=== PATIENT | female | born 1950 | race Caucasian/White ===

== ENCOUNTER 2022-07-30 14:24 | Inpatient (IN) | payer MEDICARE, OTHER ==
[~2022-07-30] VITALS: Ht 162.6 cm; Wt 97.3 kg
--- NOTE | 2022-07-30 19:30 | NUR ---
DIRECT ADMIT NOTES PT ARRIVED @ 1905 ACCOMPANIED BY 2 reporting coordinator ON [facility]. AOx4, YAKUT SPEAKING. TRANSLATED FOR PATIENT. ON RA AND TOLERATING WELL. NO SOB NOTED. NO S/SX OF RESPIRATORY DISTRESS NOTED. MEJIA CATHETER IN PLACE: DRAINING CLEAR, YELLOW URINE. SAFETY PRECAUTIONS IN PLACE: BED IN LOWEST, LOCKED POSITION, SIDERAILS UPx2, AND BRAKES ON. TABLE AND CALL LIGHT WITHIN REACH. NO ORDERS AT THIS TIME. MD CONTACTED FOR ADMITTING ORDERS. ALL NEEDS MET AT THIS TIME.
[2022-07-31] MEDS ORDERED: ONDANSETRON HCL/PF 4 MG/2 ML VIAL IVP PRN
[2022-07-31] MEDS ORDERED: ACETAMINOPHEN 325 MG TABLET PO PRN
[2022-07-31] MEDS ORDERED: ALPRAZOLAM 0.5 MG TABLET PO PRN (00:30)
[2022-07-31] MEDS: IV NS 0.9% 1,000 ML IV PRN (00:37)
[2022-07-31] MEDS: GABAPENTIN 100 MG CAPSULE PO SCH ×3 (00:37→21:36)
[2022-07-31] MEDS ORDERED: CEFTRIAXONE 1 G in IV D5W 50 ML IV SCH (01:00)
[2022-07-31] MEDS: METOPROLOL TARTRATE 50 MG TABLET PO SCH ×3 (01:08→21:35)
[2022-07-31] MEDS ORDERED: ACYCLOVIR IV 500 MG VIAL IV ONE (01:24)
--- NOTE | 2022-07-31 01:30 | NUR ---
RN NOTES CHARGE NURSE MADE AWARE OF IV IN LAC #20 AND SAID IV IN THAT SPOT IS OK.
--- NOTE | 2022-07-31 01:52 | NUR ---
RN NOTES ADMINISTERED XANAX PER MD ORDER.
[2022-07-31] MEDS: ACYCLOVIR IV 1 GM in IV D5W 250 ML IV SCH ×6 (02:17→23:06)
--- NOTE | 2022-07-31 06:48 | NUR ---
RN CLOSING NOTES PT IN BED, ASLEEP, AWAKENS TO VERBAL STIMULI. AOx4, [place] ISLANDER AND [place]ER SPEAKING. ON RA AND TOLERATING WELL. NO SOB NOTED. NO S/SX OF RESPIRATORY DISTRESS NOTED. IV ACCESS IN LAC #20G RUNNING NS @ 75 ML/HR. MEJIA CATHETER IN PLACE: DRAINING CLEAR, YELLOW URINE. ALL ORDERS CARRIED OUT. ALL NEEDS MET. PT KEPT CLEAN AND DRY. SAFETY PRECAUTIONS IN PLACE: BED IN LOWEST, LOCKED POSITION, SIDERAILS UPx2, AND BRAKES ON. TABLE AND CALL LIGHT WITHIN REACH. WILL ENDORSE TO ONCOMING SHIFT FOR RONALDO.
--- NOTE | 2022-07-31 07:30 | NUR ---
RN OPENING NOTES RECEIVED PATIENT AWAKE IN BED. PATIENT IS AOx4, SINHALA AND LITHUANIAN SPEAKING. ON RA AND TOLERATING WELL. NO SOB NOTED. NO S/SX OF RESPIRATORY DISTRESS NOTED. IV ACCESS IN LAC #20G RUNNING NS @ 75 ML/HR. MEJIA CATHETER IN PLACE: DRAINING CLEAR, YELLOW URINE. ON ISOLATION FOR SHINGLES. ALL SAFETY PRECAUTIONS IN PLACE: BED IN LOWEST, LOCKED POSITION, SIDERAILS UPx2, AND BRAKES ON. TABLE AND CALL LIGHT WITHIN REACH. WILL CONTINUE TO MONITOR.
[2022-07-31 08:00] VITALS: BP 137/75
--- NOTE | 2022-07-31 08:11 | NUR ---
WOUND CARE CONSULT: PT EATING AT THIS TIME. PT HAS REDNESS TO LEFT BREAST, LESIONS TO FACE, CHEST/ABDOMEN, GLUTEAL CREASE, AND SEVERE LESIONS TO LEFT BUTTOCK AND THIGH, ALL PRESENT ON ADMISSION. DR FAY TAVAREZ CALLED FOR SURGICAL CONSULT. DISCUSSED SKIN PROTECTION WITH NURSING STAFF BUT DEFER ANY POSSIBLE TOPICAL TREATMENT TO IJune JACQUES AND SURGICAL TEAM. MD IN AGREEMENT WITH PLAN OF CARE. Addendum: 07/31/22 at 0818 by YENI ARREDONDO WNDNU [facility].
[2022-07-31] MEDS ORDERED: Z GUARD REMEDY 4 OZ OINT TP PRN (08:30)
[2022-07-31] MEDS ORDERED: ATEN50TA PO (08:55)
[2022-07-31] MEDS ORDERED: AMLO-212 PO (08:55)
[2022-07-31] MEDS ORDERED: ALBU18HF2 INH (08:55)
[2022-07-31] MEDS ORDERED: IBUP-1955 PO (08:55)
[2022-07-31] MEDS ORDERED: ZOLP5TAB8 PO (08:55)
[2022-07-31] MEDS ORDERED: ASPI-1169 PO (08:55)
[2022-07-31] MEDS ORDERED: ICOS1CAP PO (08:55)
[2022-07-31] MEDS ORDERED: ROSU40TA23 PO (08:55)
[2022-07-31] MEDS ORDERED: ALPR0.5T8 PO (08:55)
[2022-07-31] MEDS ORDERED: GABA300C PO (08:55)
[2022-07-31] MEDS ORDERED: LISI20TA30 PO (08:55)
[2022-07-31] MEDS ORDERED: ANAS1TAB50 PO (08:55)
[2022-07-31] MEDS ORDERED: MECL-159 PO (08:55)
[2022-07-31] MEDS ORDERED: CLOT15CR5 TP (08:55)
[2022-07-31] MEDS ORDERED: MAGN400T26 PO (08:55)
[2022-07-31] MEDS: ANCEF 1 GM/50 ML D5W IV SCH ×4 (08:58→14:01)
[2022-07-31] MEDS: AMLODIPINE BESYLATE 5 MG TABLET PO SCH (09:03)
[2022-07-31] MEDS: ASPIRIN 81 MG TAB.CHEW PO SCH (09:04)
[2022-07-31] MEDS: ANASTROZOLE 1 MG TABLET PO SCH (09:04)
[2022-07-31] MEDS: ENOXAPARIN SODIUM 40 MG/0.4 ML DISP.SYRIN SQ SCH (09:06)
[2022-07-31 09:44] LABS: BASOPHILS # (AUTO) 0.1 K/uL (0.0-0.2); BASOPHILS % (AUTO) 1.1 % (0.0-2.0); EOSINOPHILS % (AUTO) 0.2 % (0.0-6.0); HEMATOCRIT 29 % (33-45); HEMOGLOBIN 9.8 g/dL (11.5-14.8); LYMPHOCYTES # (AUTO) 9.5 K/uL (0.8-4.8); LYMPHOCYTES % (AUTO) 77.2 % (20.0-44.0); MEAN CORPUSCULAR HGB CONC 34 g/dl (31.0-36.0); MEAN CORPUSCULAR VOLUME 87 fL (82-100); MONOCYTES # (AUTO) 0.3 K/uL (0.1-1.30); MONOCYTES % (AUTO) 2.7 % (2.0-12.0); NEUTROPHILS # (AUTO) 2.3 K/uL (1.8-8.9); NEUTROPHILS % (AUTO) 18.8 % (43.0-81.0); PLATELET COUNT (AUTO) 120 K/uL (150-450); RED BLOOD CELL COUNT(AUTO) 3.36 MIL/uL (4.0-5.2); WHITE BLOOD COUNT (AUTO) 12.4 K/uL (4.3-11.0)
[2022-07-31 09:46] LABS: CALCIUM, SERUM 8.3 mg/dL (8.5-10.1); CREATININE 0.7 mg/dL (0.6-1.3); MAGNESIUM 2.3 mg/dL (1.8-2.4); PHOSPHORUS 3.3 mg/dL (2.5-4.9)
[2022-07-31 12:10] LABS: LYMPHOCYTES % (MANUAL) 60 % (16-48); MONOCYTES % (MANUAL) 1 % (0-11.0); NEUTROPHILS % (MANUAL) 39 (42-76)
[2022-07-31] MEDS ORDERED: HYDROCODONE/APAP 5/325MG TABLET PO PRN (15:00)
[2022-07-31 16:00] VITALS: BP 129/52
--- NOTE | 2022-07-31 19:30 | NUR ---
RN CLOSING NOTES PATIENT AWAKE IN BED. PATIENT IS AOx4, KOSOVAN SPEAKING. ON RA AND TOLERATING WELL. NO SOB NOTED. NO S/SX OF RESPIRATORY DISTRESS NOTED. IV ACCESS IN LAC #20G RUNNING NS @ 75 ML/HR. MEJIA CATHETER IN PLACE:OUT PUT OF 2000 ML NOTED AND DRAINING CLEAR, YELLOW URINE. ON AIRBORNE ISOLATION FOR SHINGLES. ALL DUE MEDS GIVEN ORDERED. FAMILY VISITED THE PATIENT. ALL SAFETY PRECAUTIONS IN PLACE: BED IN LOWEST, LOCKED POSITION, SIDERAILS UPx2, AND BRAKES ON. TABLE AND CALL LIGHT WITHIN REACH. WILL ENDORSE FOR RONALDO..
--- NOTE | 2022-07-31 19:45 | NUR ---
MS RN OPENING NOTES RECEIVED PATIENT IN BED: AWAKE, ALERT AND ORIENTED X 4. SURINAMESE SPEAKING, SPEAK SIMPLE HUNGARIAN. BREATHING EVEN AND NONLABORED. ON ROOM AIR; WELL TOLERATING. NOT IN ANY FORM OF RESPIRATORY DISTRESS. WITH IV ACCESS ON LEFT ANTECUBITAL 20g: PATENT AND INTACT INFUSING WITH NS REGULATED @ 75 ML/HR; FLUSHES WELL. ABLE TO MAKE NEEDS KNOWN. FALL AND SAFETY MEASURES IMPLEMENTED: CALL LIGHT AND TABLE WITHIN REACH, SIDE RAILS UP X 2, BED IN LOWEST LOCKED POSITION. WILL CONTINUE PLAN OF CARE.
[2022-07-31 20:00] VITALS: BP 122/79
[2022-07-31] MEDS: CEFAZOLIN 2 GM in IV D5W 50 ML IV SCH (20:12)
[2022-08-01] MEDS: CEFAZOLIN 2 GM in IV D5W 50 ML IV SCH ×3 (05:20→20:43)
--- NOTE | 2022-08-01 07:00 | NUR ---
MS RN CLOSING NOTES PATIENT IN BED: AWAKE, A/O X 4. HUNGARIAN SPEAKING, SPEAK SIMPLE LITHUANIAN. BREATHING EVEN AND NONLABORED. STABLE ON ROOM AIR. IN NO APPARENT DISTRESS. WITH IV ACCESS ON LEFT ANTECUBITAL 20g: PATENT AND INTACT INFUSING WITH NS REGULATED @ 75 ML/HR; INFUSING WELL. ALL NEEDS MET. FALL AND SAFETY MEASURES MAINTAINED: CALL LIGHT AND TABLE WITHIN REACH, SIDE RAILS UP X 2, BED IN LOWEST LOCKED POSITION. ENDORSED TO STANISLAV CAMPOS FOR RONALDO.
--- NOTE | 2022-08-01 07:30 | NUR ---
MS RN OPENING NOTES: RECEIVED PATIENT IN BED, AWAKE. ALERT AND ORIENTED X 4 ARABIC SPEAKING, ABLE TO COMMUNICATE WITH SIMPLE CITIZEN OF [place]. NO SOB OR CARDIAC DISTRESS NOTED. AFEBRILE DENIES PAIN AT THIS TIME. IV ACCESS ON LAC G#20 PATENT AND INTACT AND INFUSING NS 1L @75ML/HR INFUSING WELL. MEJIA CATHETER INTACT DRAINING CLEAR YELLOW COLORED URINE BY GRAVITY. NOTED WITH MULTIPLE SCATTERED RASHES/BLISTERS ON FACE AND ANTERIOR CHEST, BACK, INNER THIGHS AND BUTTOCKS. SAFETY PRECAUTIONS MAINTAINED: BED IN LOWEST AND LOCKED POSITION. SIDE RAILS UP X 2. CALL LIGHT IN EASY REACH FOR HELP. WILL MONITOR FOR ANY SIGNIFICANT CHANGES.
[2022-08-01 08:00] VITALS: BP 133/73
--- NOTE | 2022-08-01 08:10 | NUR ---
RN NOTES: PATIENT SEEN, BED BATH GIVEN, CHANGES CLOTHES AND BEDDINGS AND BLANKET. REINSERTED G #22 IV ACCESS ON RIGHT HAND PATENT AND INTACT. LAC ACCESS KEPT FLEXING AND MOVING. PATIENT TOLERATED WELL.
[2022-08-01] MEDS: ACYCLOVIR IV 1 GM in IV D5W 250 ML IV SCH ×2 (08:31→16:01)
[2022-08-01] MEDS: GABAPENTIN 100 MG CAPSULE PO SCH ×2 (08:37→20:43)
[2022-08-01] MEDS: ANASTROZOLE 1 MG TABLET PO SCH (08:37)
[2022-08-01] MEDS: ASPIRIN 81 MG TAB.CHEW PO SCH (08:37)
[2022-08-01] MEDS: AMLODIPINE BESYLATE 5 MG TABLET PO SCH (08:38)
[2022-08-01] MEDS: METOPROLOL TARTRATE 50 MG TABLET PO SCH ×2 (08:38→20:43)
[2022-08-01] MEDS: ENOXAPARIN SODIUM 40 MG/0.4 ML DISP.SYRIN SQ SCH (09:40)
--- NOTE | 2022-08-01 14:44 | NUR ---
RN NOTES: PATIENT WAS PICKED UP BY OR NURSE PATEL FOR WOUND DEBRIDEMENT. PATIENT STABLE AND IV ANTIBIOTIC VANCO RUNNING WELL. PATIENT STABLE AT THIS TIME. MAINTAINED NPO.
[2022-08-01 16:00] VITALS: BP_SYST 130; BP_SYST 131; BP_DIAS 79
[2022-08-01] MEDS: IV NS 0.9% 1,000 ML IV PRN (16:10)
--- NOTE | 2022-08-01 17:40 | NUR ---
RN NOTES: PATIENT IS HAVING CONSTIPATION FOR 5 DAYS, RN ASSISTED PT GOING TO BATHROOM AND HAVING HARD TIME TO HAVE BM. INFORMED DR HAZEL, PER MD ORDERED MIRALAX 1 PACKET PRN DAILY. ORDERS NOTED AND CARRIED OUT. PATIENT HAD BM AFTER I MESSAGED .
[2022-08-01] MEDS ORDERED: POLYETHYLENE GLYCOL 3350 17 GM POWD.PACK PO PRN (18:30)
--- NOTE | 2022-08-01 18:56 | NUR ---
MS RN CLOSING NOTES: PATIENT IN BED, AWAKE. ALERT AND ORIENTED X 4 ALBANIAN SPEAKING, ABLE TO COMMUNICATE WITH SIMPLE LITHUANIAN. FAMILY AT BED SIDE. NO SOB OR CARDIAC DISTRESS NOTED. AFEBRILE DENIES PAIN AT THIS TIME. IV ACCESS ON LAC G#20, R HAND G#22 PATENT AND INTACT AND INFUSING NS 1L @75ML/HR INFUSING WELL. MEJIA CATHETER INTACT DRAINING CLEAR YELLOW COLORED URINE BY GRAVITY. NOTED WITH MULTIPLE SCATTERED RASHES/BLISTERS ON FACE AND ANTERIOR CHEST, BACK, INNER THIGHS AND BUTTOCKS. SAFETY PRECAUTIONS MAINTAINED: BED IN LOWEST AND LOCKED POSITION. SIDE RAILS UP X 2. CALL LIGHT IN EASY REACH FOR HELP. WILL MONITOR FOR ANY SIGNIFICANT CHANGES. ENDORSED TO NOC SHIFT FOR CONTINUITY OF CARE.
--- NOTE | 2022-08-01 19:30 | NUR ---
RN OPENING NOTE PATIENT IN BED, ABLE TO MAKE NEEDS KNOWN. AMBULATED TO BATHROOM WITH ASSIST. PATIENT ON RA, TOLERATING WELL, NO SOB NOTED, BREATHING EVEN AND UNLABORED. PATIENT NO PAIN AT THIS TIME. R HAND IV ACCESS PATENT AND INTACT INFUSING IV FLUIDS. PATIENT IN ISOLATION RM FOR SHINGLES, ISOLATION PRECAUTION IN PLACE. SAFETY MEASURES IN PLACE: BED LOCKED AND IN LOWEST POSITION, CALL LIGHT WITHIN REACH, SIDE RAILS UP. WILL MONITOR PATIENT CLOSELY.
[2022-08-01 20:00] VITALS: BP 145/57
[2022-08-02] MEDS: ACYCLOVIR IV 1 GM in IV D5W 250 ML IV SCH ×3 (00:46→16:16)
[2022-08-02] MEDS: CEFAZOLIN 2 GM in IV D5W 50 ML IV SCH ×3 (04:43→21:42)
--- NOTE | 2022-08-02 07:07 | NUR ---
RN CLOSING NOTE PATIENT IN BED, EYES CLOSED, EASILY AWAKENED. ABLE TO MAKE NEEDS KNOWN. PATIENT ON RA, TOLERATING WELL, NO SOB NOTED, BREATHING EVEN AND UNLABORED. PATIENT NO PAIN AT THIS TIME. R HAND 22G PATENT AND INTACT INFUSING NS AT 75 ML/HR. PATIENT IN ISOLATION RM FOR SHINGLES, ISOLATION PRECAUTIONS IN PLACE. PATIENT NOT IN ANY APPARENT DISTRESS. SAFETY MEASURES IN PLACE: BED LOCKED AND IN LOWEST POSITION, CALL LIGHT WITHIN REACH, SIDE RAILS UP. ALL NEEDS MET AND ATTENDED. ALL ORDERS CARRIED OUT. WILL ENDORSE TO DAY SHIFT NURSE FOR RONALDO.
--- NOTE | 2022-08-02 08:07 | NUR ---
RN OPENING NOTE PATIENT RECEIVED IN BED, AO X 4, SINHALA SPEAKING, ABLE TO RESPONDS ALL STIMULI. IN NO ACUTE DISTRESS NOTED. RESPIRATORY EVEN AND UNLABORED ON ROOM AIR. SKIN IS WARM TO TOUCH, KEEP CLEAN/DRY. KEPT ELEVATED HOB FOR ENSURE AIRWAY AND ASPIRATION PRECAUTION, ALSO LOWEST POSITION OF THE BED, S/R UP X 2, BED ALARM IS ON AT ALL THE TIMES. ALL SAFETY PRECAUTION APPLIED. CALL LIGHT WITHIN REACH, WILL CONTINUE TO MONITOR.
[2022-08-02 08:42] VITALS: BP 137/59
[2022-08-02] MEDS: GABAPENTIN 100 MG CAPSULE PO SCH ×2 (09:25→21:41)
[2022-08-02] MEDS: ENOXAPARIN SODIUM 40 MG/0.4 ML DISP.SYRIN SQ SCH (09:25)
[2022-08-02] MEDS: ASPIRIN 81 MG TAB.CHEW PO SCH (09:25)
[2022-08-02] MEDS: ANASTROZOLE 1 MG TABLET PO SCH (09:26)
[2022-08-02] MEDS: METOPROLOL TARTRATE 50 MG TABLET PO SCH ×2 (09:26→21:42)
[2022-08-02] MEDS: AMLODIPINE BESYLATE 5 MG TABLET PO SCH (09:28)
[2022-08-02] MEDS: IV NS 0.9% 1,000 ML IV PRN (13:25)
[2022-08-02 16:12] VITALS: BP 153/69
--- NOTE | 2022-08-02 18:52 | NUR ---
RN CLOSING NOTE PATIENT IN BED RESTING. IN NO ACUTE DISTRESS NOTED. RESPIRATORY EVEN AND UNLABORED ON ROOM AIR. SKIN IS WARM TO TOUCH, KEEP CLEAN/DRY, INTACT IV LINE. PROVIDED WOUND CARE ON AFFECTED SITE DUE TO SHINGLES. KEPT ELEVATED HOB FOR ENSURE AIRWAY AND ASPIRATION PRECAUTION. BED IN LOWEST POSITION AND LOCKED. BED ALARM IS ON AT ALL THE TIMES. ALL SAFETY MEASURED IN PLACED. CALL LIGHT WITHIN REACH, WILL ENDORSED TO NEXT SHIFT.
--- NOTE | 2022-08-02 19:40 | NUR ---
MS RN OPENING NOTES RECEIVED PATIENT IN BED; AWAKE, ALERT AND ORIENTED X 4. IRANIAN SPEAKING, SPEAKS AND UNDERSTAND SIMPLE NEPALI. BREATHING EVEN AND NONLABORED. ON ROOM AIR; TOLERATING WELL. NOT IN ANY FORM OF RESPIRATORY DISTRESS. DENIES ANY PAIN OR DISCOMFORT AT THIS TIME. WITH IV ACCESS ON LEFT ANTECUBITAL 20g; PATENT, INTACT AND SL. RIGHT HAND 22g; PATENT AND INTACT INFUSING WITH NS 1L REGULATED @ 75 ML/HR; FLUSHES WELL. NO INFILTRATION NOTED. ABLE TO MAKE NEEDS KNOWN. SAFETY PRECAUTIONS IMPLEMENTED: CALL LIGHT AND TABLE WITHIN EASY REACH, SIDE RAILS UP X 2, BED IN LOWEST LOCKED POSITION. WILL CONTINUE PLAN OF CARE.
[2022-08-02 20:00] VITALS: BP 146/69
[2022-08-02 20:28] VITALS: BP 146/69
[2022-08-03] MEDS: ACYCLOVIR IV 1 GM in IV D5W 250 ML IV SCH ×3 (00:47→16:12)
[2022-08-03] MEDS: CEFAZOLIN 2 GM in IV D5W 50 ML IV SCH ×3 (04:10→21:34)
[2022-08-03] MEDS: IV NS 0.9% 1,000 ML IV PRN ×2 (05:26→18:07)
--- NOTE | 2022-08-03 06:55 | NUR ---
MS RN CLOSING NOTES PATIENT IN BED; AWAKE, A/O X 4. KYRGYZ SPEAKING, SPEAKS AND UNDERSTAND SIMPLE MICRONESIAN. RESPIRATION EVEN AND UNLABORED. STABLE ON ROOM AIR. IN NO APPARENT DISTRESS. NO C/O PAIN OR DISCOMFORT AT THIS TIME. WITH IV ACCESS ON LAC 20g; PATENT, INTACT AND SL. RIGHT HAND 22g; PATENT AND INTACT INFUSING WITH NS 1L REGULATED @ 75 ML/HR; FLUSHES WELL. ALL NEEDS MET. SAFETY PRECAUTIONS MAINTAINED: CALL LIGHT AND TABLE WITHIN EASY REACH, SIDE RAILS UP X 2, BED IN LOWEST LOCKED POSITION. ENDORSED TO ARACELI CAMPOS FOR RONALDO.
[2022-08-03 07:25] LABS: BASOPHILS % (AUTO) 0.4 % (0.0-2.0); EOSINOPHILS % (AUTO) 1.2 % (0.0-6.0); HEMATOCRIT 28 % (33-45); HEMOGLOBIN 9.4 g/dL (11.5-14.8); LYMPHOCYTES # (AUTO) 7.3 K/uL (0.8-4.8); LYMPHOCYTES % (AUTO) 69.8 % (20.0-44.0); MEAN CORPUSCULAR HGB CONC 34 g/dl (31.0-36.0); MEAN CORPUSCULAR VOLUME 88 fL (82-100); MONOCYTES # (AUTO) 0.3 K/uL (0.1-1.30); MONOCYTES % (AUTO) 2.6 % (2.0-12.0); NEUTROPHILS # (AUTO) 2.7 K/uL (1.8-8.9); PLATELET COUNT (AUTO) 172 K/uL (150-450); RED BLOOD CELL COUNT(AUTO) 3.15 MIL/uL (4.0-5.2); WHITE BLOOD COUNT (AUTO) 10.5 K/uL (4.3-11.0)
--- NOTE | 2022-08-03 07:35 | NUR ---
MS RN OPENING NOTES PATIENT IN BED; AWAKE, A/O X 4. PATIENT IS PLACED IN ISOLATION PRECAUTION IN NEGATIVE PRESSURE ROOM. PRIMARILY CROATIAN SPEAKING BUT HAS GOOD COMMAND OF SIMPLE MACEDONIAN. RESPIRATION EVEN AND UNLABORED. STABLE ON ROOM AIR, NO DISTRESS NOTED. DENIED PAIN OR DISCOMFORT AT THIS TIME. WITH IV ACCESS ON LAC 20g; PATENT, INTACT AND SL. RIGHT HAND 22g; PATENT AND INTACT INFUSING WITH NS 1L REGULATED @ 75 ML/HR; FLUSHES WELL. ALL NEEDS MET. SAFETY PRECAUTIONS MAINTAINED: CALL LIGHT AND TABLE WITHIN EASY REACH, SIDE RAILS UP X 2, BED IN LOWEST LOCKED POSITION. WILL CONTINUE TO MONITOR AND WILL OBSERVE CONTACT AND AIRBORNE PRECAUTIONS.
[2022-08-03 08:00] VITALS: BP 136/51
[2022-08-03 08:01] LABS: CALCIUM, SERUM 8.2 mg/dL (8.5-10.1); CREATININE 0.6 mg/dL (0.6-1.3); POTASSIUM 3.8 mmol/L (3.5-5.1)
[2022-08-03] MEDS: ENOXAPARIN SODIUM 40 MG/0.4 ML DISP.SYRIN SQ SCH (08:27)
[2022-08-03] MEDS: GABAPENTIN 100 MG CAPSULE PO SCH ×2 (08:28→21:35)
[2022-08-03] MEDS: ANASTROZOLE 1 MG TABLET PO SCH (08:28)
[2022-08-03] MEDS: ASPIRIN 81 MG TAB.CHEW PO SCH (08:28)
[2022-08-03] MEDS: METOPROLOL TARTRATE 50 MG TABLET PO SCH ×2 (09:01→21:35)
[2022-08-03] MEDS: AMLODIPINE BESYLATE 5 MG TABLET PO SCH (09:02)
[2022-08-03 09:17] LABS: BASOPHILS % (MANUAL) 1 % (0.0-2.0); EOSINOPHILS % (MANUAL) 1 % (0-4); LYMPHOCYTES % (MANUAL) 68 % (16-48); MONOCYTES % (MANUAL) 2 % (0-11.0); NEUTROPHILS % (MANUAL) 28 (42-76)
[2022-08-03 16:00] VITALS: BP 151/67
--- NOTE | 2022-08-03 18:50 | NUR ---
RN NOTES REMOVED LEFT AC IV D/T BLEEDING, LINE NOT PATENT ANYMORE WHEN FLUSHED.
--- NOTE | 2022-08-03 18:56 | NUR ---
MS RN CLOSING NOTES PATIENT IN BED; AWAKE, A/O X 4 ACCOMPANIED BY UNDER ISOLATION PRECAUTION IN NEGATIVE PRESSURE ROOM. PRIMARILY [place] CITIZEN SPEAKING BUT HAS GOOD COMMAND OF SIMPLE WELSH. RESPIRATION EVEN AND UNLABORED. STABLE ON ROOM AIR, NO DISTRESS NOTED. COMPLAINED OF 5/10 PAIN ORIGINATING IN THE BUTTOCKS AREA, GIVEN NORCO 5/325 MG ORDERED. WITH IV ACCESS ON RIGHT HAND 20 G, PATENT AND INTACT INFUSING WITH NS 1L REGULATED @ 75 ML/HR. PM WOUND CARE PROVIDED ORDERED. ALL NEEDS MET. SAFETY PRECAUTIONS MAINTAINED: CALL LIGHT AND TABLE WITHIN EASY REACH, SIDE RAILS UP X 2, BED IN LOWEST LOCKED POSITION. ENDORSED TO THE NIGHT NURSE.
[2022-08-03 22:47] VITALS: BP 128/49
--- NOTE | 2022-08-04 01:06 | NUR ---
MS/TELE/RN PATIENT IS SLEEPING AT THIS TIME, NO SIGNS OF DISTRESS NOTED, CALL LIGHT IN REACH, WILL CONTINUE TO MONITOR.
[2022-08-04] MEDS: ACYCLOVIR IV 1 GM in IV D5W 250 ML IV SCH ×4 (01:25→23:16)
[2022-08-04] MEDS: CEFAZOLIN 2 GM in IV D5W 50 ML IV SCH (04:52)
--- NOTE | 2022-08-04 05:00 | NUR ---
MS/TELE/RN PATIENT IS SLEEPING, NO DISTRESS NOTED, CALL LIGHT IN REACH, ALL NEEDS ATTENDED AT THIS TIME, WILL CONTINUE TO MONITOR.
[2022-08-04 07:05] LABS: BASOPHILS % (AUTO) 0.3 % (0.0-2.0); EOSINOPHILS % (AUTO) 1.3 % (0.0-6.0); HEMATOCRIT 29 % (33-45); HEMOGLOBIN 9.7 g/dL (11.5-14.8); LYMPHOCYTES # (AUTO) 8.2 K/uL (0.8-4.8); LYMPHOCYTES % (AUTO) 69.9 % (20.0-44.0); MEAN CORPUSCULAR HGB CONC 33 g/dl (31.0-36.0); MEAN CORPUSCULAR VOLUME 88 fL (82-100); MONOCYTES # (AUTO) 0.3 K/uL (0.1-1.30); MONOCYTES % (AUTO) 2.5 % (2.0-12.0); PLATELET COUNT (AUTO) 242 K/uL (150-450); RED BLOOD CELL COUNT(AUTO) 3.34 MIL/uL (4.0-5.2); WHITE BLOOD COUNT (AUTO) 11.7 K/uL (4.3-11.0)
--- NOTE | 2022-08-04 07:30 | NUR ---
Patient AOx4, states no discomfort, per patient she is wheelchair dependent at home. Right arm IV, no signs of infiltration, no pain reported. Kay catheter in place with 300ml. PAtient made aware of care plan and agrees. All safety precautions taken, bed at lowest position, call light and table at bedside. Will continue to monitor throughout shift.
[2022-08-04] MEDS: GABAPENTIN 100 MG CAPSULE PO SCH ×2 (08:08→21:31)
[2022-08-04] MEDS: ANASTROZOLE 1 MG TABLET PO SCH (08:09)
[2022-08-04] MEDS: ASPIRIN 81 MG TAB.CHEW PO SCH (08:09)
[2022-08-04] MEDS: ENOXAPARIN SODIUM 40 MG/0.4 ML DISP.SYRIN SQ SCH (08:13)
[2022-08-04] MEDS: AMLODIPINE BESYLATE 5 MG TABLET PO SCH (08:21)
[2022-08-04] MEDS: METOPROLOL TARTRATE 50 MG TABLET PO SCH ×2 (08:21→21:31)
[2022-08-04 08:25] LABS: CALCIUM, SERUM 8.6 mg/dL (8.5-10.1); CREATININE 0.7 mg/dL (0.6-1.3); PHOSPHORUS 3.3 mg/dL (2.5-4.9); POTASSIUM 4.4 mmol/L (3.5-5.1)
[2022-08-04] MEDS: CEFAZOLIN 2 GM in IV D5W 100 ML IV SCH ×2 (13:05→21:33)
[2022-08-04 16:00] VITALS: BP 143/55
--- NOTE | 2022-08-04 18:47 | NUR ---
RN Closing Notes PT [id number] to express her own concerns, at bedside. Pts primary language is Prydeinig, They did not wish to use interpretation services. Rounded on patient throughput shift,every 1-2 hours. New IV inserted in Left wrist, 20g, no signs of infiltration. Patients total output was 1800ml, urine is clear yellow, no foul smell. Patient did not have a bowel movement throughout shift, will endorse report to PM Nurse. Administered medications and provided care as needed throughout shift. All safety precautions taken, no incidents throughout shift, call light and table within reach, bed at lowest position.
--- NOTE | 2022-08-04 19:34 | NUR ---
RN Opening Notes PT [id number] to express her own concerns, at bedside. Pts primary language is Bulgarian. IV noted on the Left wrist, 20g, no signs of infiltration. Patients noted with moreau catheter with, urine is clear yellow draining by gravity. All safety precautions taken, no incidents throughout shift, call light and table within reach, bed at lowest position.
[2022-08-04 20:00] VITALS: BP 125/90
[2022-08-05] MEDS: CEFAZOLIN 2 GM in IV D5W 100 ML IV SCH ×3 (04:47→21:38)
--- NOTE | 2022-08-05 06:41 | NUR ---
RN Closing Notes PT AOx4 able to express her needs. Pts primary language is Marshallese. IV noted on the Left wrist, 20g, no signs of infiltration. Patients noted with moreau catheter with, urine is clear yellow draining by gravity. All safety precautions taken, no incidents throughout shift, call light and table within reach, bed at lowest position. will endorse care to day shift nurse.
[2022-08-05 06:48] LABS: BASOPHILS % (AUTO) 0.3 % (0.0-2.0); HEMATOCRIT 31 % (33-45); HEMOGLOBIN 10.2 g/dL (11.5-14.8); LYMPHOCYTES # (AUTO) 9.7 K/uL (0.8-4.8); LYMPHOCYTES % (AUTO) 72.2 % (20.0-44.0); MEAN CORPUSCULAR HGB CONC 33 g/dl (31.0-36.0); MEAN CORPUSCULAR VOLUME 88 fL (82-100); MONOCYTES # (AUTO) 0.3 K/uL (0.1-1.30); MONOCYTES % (AUTO) 2.4 % (2.0-12.0); NEUTROPHILS # (AUTO) 3.2 K/uL (1.8-8.9); NEUTROPHILS % (AUTO) 24.1 % (43.0-81.0); PLATELET COUNT (AUTO) 302 K/uL (150-450); RED BLOOD CELL COUNT(AUTO) 3.49 MIL/uL (4.0-5.2); WHITE BLOOD COUNT (AUTO) 13.4 K/uL (4.3-11.0)
[2022-08-05 06:56] LABS: CALCIUM, SERUM 8.7 mg/dL (8.5-10.1); CREATININE 0.6 mg/dL (0.6-1.3); POTASSIUM 3.8 mmol/L (3.5-5.1)
--- NOTE | 2022-08-05 07:30 | NUR ---
RN Receiving Report. PT AO x4, able to express her own concerns. States no pain, no signs of distress. Patients IV Fluids running as prescribed, no signs of infiltration. Patients states she slept "soso". Made her aware of plan of care for the day, states her will be here around 10 am and will discuss. All safety precautions taken, call light and table within reach, bed at lowest position.
[2022-08-05 08:00] VITALS: BP 176/81
[2022-08-05] MEDS: ACYCLOVIR IV 1 GM in IV D5W 250 ML IV SCH ×3 (08:29→23:06)
[2022-08-05] MEDS: ASPIRIN 81 MG TAB.CHEW PO SCH (08:30)
[2022-08-05] MEDS: ANASTROZOLE 1 MG TABLET PO SCH (08:30)
[2022-08-05] MEDS: GABAPENTIN 100 MG CAPSULE PO SCH ×2 (08:30→21:39)
[2022-08-05] MEDS: ENOXAPARIN SODIUM 40 MG/0.4 ML DISP.SYRIN SQ SCH (08:32)
[2022-08-05] MEDS: METOPROLOL TARTRATE 50 MG TABLET PO SCH ×2 (08:33→21:39)
[2022-08-05] MEDS: AMLODIPINE BESYLATE 5 MG TABLET PO SCH (08:33)
[2022-08-05 11:54] LABS: BASOPHILS % (MANUAL) 0 % (0.0-2.0); EOSINOPHILS % (MANUAL) 1 % (0-4); LYMPHOCYTES % (MANUAL) 68 % (16-48); MONOCYTES % (MANUAL) 8 % (0-11.0); NEUTROPHILS % (MANUAL) 23 (42-76)
[2022-08-05 12:00] VITALS: BP 130/101
[2022-08-05 16:00] VITALS: BP_SYST 142; BP_SYST 155; BP_DIAS 68; BP_DIAS 77
--- NOTE | 2022-08-05 19:28 | NUR ---
RN Closing Note Pt AOx4, able to express her own concerns. Patient remained stable throughout shift, provided care as needed and medications as ordered. Provided wound care as ordered, vesicle seem to be healing/drying. Discontinued Kay Cath, patient was able to void after 3x, and had 2 bowel movements throughout shift. Educated on importance of using call light to help with ambulating to bathroom. at bedside has been providing assistance throughout shift. IV shows no signs of infiltration, no pain to site reported. All safety precautions taken throughout shift, call light and table within reach, bed at lowest position.
--- NOTE | 2022-08-05 19:35 | NUR ---
MS RN OPENING NOTE RECEIVED PT AWAKE IN BED. A/O X4 AND ABLE TO MAKE NEEDS KNOWN. AND SON AT BEDSIDE. PT STABLE ON ROOM AIR. NO SOB OR S/S OF RESPIRATORY DISTRESS. BREATHING EVEN AND UNLABORED. IV ACCESS R WRIST 20 GAUGE RUNNING NS @ 75 ML/HR, INTACT AND PATENT. SAFETY PRECAUTIONS IN PLACE. BED IN LOWEST LOCKED POSITION, HOB ELEVATED, SIDE RAILS UP X2, AND CALL LIGHT AND TABLE WITHIN REACH. ALL NEEDS MET AT THIS TIME.
[2022-08-05 20:00] VITALS: BP 134/62
[2022-08-05] MEDS: IV NS 0.9% 1,000 ML IV PRN (22:49)
[2022-08-05] MEDS ORDERED: TEMAZEPAM 15 MG CAPSULE PO PRN (23:00)
--- NOTE | 2022-08-05 23:06 | NUR ---
RN NOTE PT REQUESTED A SLEEPING PILL. MACHINE BURRER SARAH MADE AWARE WITH NEW ORDERS NOTED AND CARRIED OUT. ADMINISTERED RESTORIL 15 MG FOR INSOMNIA ORDERED. MADE COMFORTABLE IN BED. ALL NEEDS MET AT THIS TIME.
[2022-08-06] MEDS: CEFAZOLIN 2 GM in IV D5W 100 ML IV SCH (05:13)
--- NOTE | 2022-08-06 07:30 | NUR ---
RN Receiving report. PT AOx4, able to express her own concerns. Patient shows no signs of distress. IV fluids running as prescribed. Will continue to monitor throughout shift, provide medications as scheduled and care as needed. All safety precautions taken with pt, call light and table within reach, bed at lowest position.
[2022-08-06 08:00] VITALS: BP 112/85
--- NOTE | 2022-08-06 08:22 | NUR ---
WOUND CARE CONSULT: PT PRESENTS WITH DRY LESIONS TO BUTTOCKS AND THIGH WELL SOME SPOTS TO UPPER BODY AND FACE, PRESENT ON ADMISSION. PT STATES THAT LESIONS ARE NO LONGER PAINFUL. PT IS INDEPENDENT WITH BED MOBILITY AND IS CONTINENT. DEFER TO I.D. AND SURGICAL TEAM CURRENTLY ON CASE FOR LESIONS.
[2022-08-06] MEDS: ANASTROZOLE 1 MG TABLET PO SCH (09:26)
[2022-08-06] MEDS: GABAPENTIN 100 MG CAPSULE PO SCH (09:26)
[2022-08-06] MEDS: ASPIRIN 81 MG TAB.CHEW PO SCH (09:26)
[2022-08-06 09:27] VITALS: BP 112/85
[2022-08-06] MEDS: METOPROLOL TARTRATE 50 MG TABLET PO SCH (09:27)
[2022-08-06] MEDS: AMLODIPINE BESYLATE 5 MG TABLET PO SCH (09:27)
[2022-08-06] MEDS: ENOXAPARIN SODIUM 40 MG/0.4 ML DISP.SYRIN SQ SCH (09:29)
[2022-08-06] MEDS: ACYCLOVIR IV 1 GM in IV D5W 250 ML IV SCH (09:31)
--- NOTE | 2022-08-06 09:45 | NUR ---
PT AOx 4, provided wound care an bed bath and bladder scan as advised by physician. 200ml residual patient states she voided 3 hours ago. Educated on importance of monitoring urine output and providing perineal care. Will continue to monitor throughout shift.
[2022-08-06] MEDS ORDERED: Cephalexin Monohydrate PO (11:06)
[2022-08-06] MEDS ORDERED: CEPHALEXIN MONOHYDRATE 250 MG CAPSULE PO SCH (12:00)
--- NOTE | 2022-08-06 15:28 | NUR ---
customer service specialist Note PT AOx4, able to express her own concerns. Son and at bedside her to take pt home. Patient states she is feeling better and ready to go home. Educated patient on importance of following up with PCP and following up with her Home Health services. Patient verbalizes understanding and is active in conversation. Exitcare used and all documentation given to pt to provide to her PCP. Patient states being grateful with services provided. All safety precautions taken, IV removed with catheter intact. Patient transported to her car via wheelchair safely.
== END 2022-08-06 15:30 | disposition home or self-care (01) | DRG 871 ==
LOC: MED 18:57
PROVIDERS: ADMIT Nurse Practitioner Acute Care; ATTEND Internal Medicine
DX: A41.9 Sepsis, unspecified organism (principal); G92.8 Other toxic encephalopathy; B02.7 Disseminated zoster; D68.59 Other primary thrombophilia; E87.1 Hypo-osmolality and hyponatremia; L03.317 Cellulitis of buttock; Z20.822 Contact with and (suspected) exposure to COVID-19; E86.0 Dehydration; N61.0 Mastitis without abscess; E78.5 Hyperlipidemia, unspecified; J45.909 Unspecified asthma, uncomplicated; G47.00 Insomnia, unspecified; F41.9 Anxiety disorder, unspecified; E66.9 Obesity, unspecified; E11.9 Type 2 diabetes mellitus without complications; Z92.21 Personal history of antineoplastic chemotherapy; Z74.09 Other reduced mobility; Z85.3 Personal history of malignant neoplasm of breast; Z86.73 Personal history of transient ischemic attack (TIA), and cerebral infarction without residual deficits; Z90.12 Acquired absence of left breast and nipple; Z90.710 Acquired absence of both cervix and uterus; I10 Essential (primary) hypertension; E86.1 Hypovolemia; D69.6 Thrombocytopenia, unspecified; D63.8 Anemia in other chronic diseases classified elsewhere; K59.00 Constipation, unspecified; Z79.51 Long term (current) use of inhaled steroids; Z79.82 Long term (current) use of aspirin; Z79.899 Other long term (current) drug therapy; Z68.36 Body mass index [BMI] 36.0-36.9, adult
CPT/HCPCS: 36415; 80048-TC; 83735-TC; 84100-TC; 85025-TC; 87081-TC; 97116-TC; 97530-TC; A6253; A6403; G0378; J0133; J0690; J1650; J3490; J7030; J7060

== ENCOUNTER 2022-08-14 10:29 | Outpatient (CLI) | payer MEDICARE, OTHER ==
[~2022-08-14 10:29] MED LIST: ALBU18HF2 INH; ALPR0.5T8 PO; AMLO-212 PO; ANAS1TAB50 PO; ASPI-1169 PO; ATEN50TA PO; CLOT15CR5 TP; Cephalexin Monohydrate PO; GABA300C PO; IBUP-1955 PO; ICOS1CAP PO; LISI20TA30 PO; MAGN400T26 PO; MECL-159 PO; ROSU40TA23 PO; ZOLP5TAB8 PO
== END 2022-08-14 23:59 | disposition home or self-care (01) ==
LOC: MSC 10:29
PROVIDERS: ATTEND Internal Medicine
DX: Z09 Encounter for follow-up examination after completed treatment for conditions other than malignant neoplasm (principal); Z86.19 Personal history of other infectious and parasitic diseases; C50.912 Malignant neoplasm of unspecified site of left female breast; Z92.21 Personal history of antineoplastic chemotherapy; I10 Essential (primary) hypertension; J45.909 Unspecified asthma, uncomplicated; D64.9 Anemia, unspecified; D69.6 Thrombocytopenia, unspecified; E78.5 Hyperlipidemia, unspecified; F41.9 Anxiety disorder, unspecified; E66.9 Obesity, unspecified; Z68.36 Body mass index [BMI] 36.0-36.9, adult

== ENCOUNTER 2022-12-15 15:37 | Emergency (ER) | payer MEDICARE, OTHER ==
[~2022-12-15] VITALS: Ht 144.8 cm; Wt 90.3 kg
--- NOTE | 2022-12-15 15:45 | NUR ---
BIB FAMILY C/O L SIDED ABDOMINAL PAIN THAT STARTED 12/10 AFTER RECEIVING CHEMO, HAS BREAST CANCER THAT HAS MESTATISIZED.
[2022-12-15] MEDS ORDERED: MORPHINE SULFATE INJ 2 MG/ML DISP.SYRIN IV ONE (16:00)
--- NOTE | 2022-12-15 16:10 | NUR ---
BLOOD DRAWN AND SEN TO LAB
[2022-12-15] MEDS ORDERED: MORPHINE SULFATE INJ 2 MG/ML DISP.SYRIN ONE (16:11)
[2022-12-15 16:22] LABS: BASOPHILS % (AUTO) 0.4 % (0.0-2.0); EOSINOPHILS % (AUTO) 0.5 % (0.0-6.0); HEMATOCRIT 35 % (33-45); HEMOGLOBIN 11.5 g/dL (11.5-14.8); LYMPHOCYTES # (AUTO) 7.9 K/uL (0.8-4.8); LYMPHOCYTES % (AUTO) 64.9 % (20.0-44.0); MEAN CORPUSCULAR HGB CONC 33 g/dl (31.0-36.0); MEAN CORPUSCULAR VOLUME 85 fL (82-100); MONOCYTES # (AUTO) 0.2 K/uL (0.1-1.30); MONOCYTES % (AUTO) 1.8 % (2.0-12.0); NEUTROPHILS % (AUTO) 32.4 % (43.0-81.0); PLATELET COUNT (AUTO) 137 K/uL (150-450); RED BLOOD CELL COUNT(AUTO) 4.15 MIL/uL (4.0-5.2); WHITE BLOOD COUNT (AUTO) 12.2 K/uL (4.3-11.0)
--- NOTE | 2022-12-15 16:27 | NUR ---
URINE SAMPLE SENT TO LAB
[2022-12-15 17:01] LABS: ALBUMIN 3.6 g/dL (3.4-5.0); BILIRUBIN,DIRECT 0.1 mg/dL (0.0-0.2); BILIRUBIN,TOTAL 0.7 mg/dL (0.2-1.0); CALCIUM, SERUM 8.8 mg/dL (8.5-10.1); CREATININE 0.8 mg/dL (0.6-1.3); POTASSIUM 3.9 mmol/L (3.5-5.1); TOTAL PROTEIN, SERUM 6.3 g/dL (6.4-8.2)
[2022-12-15 17:18] LABS: BILIRUBIN,URINE 1+ (NEGATIVE); COLOR,URINE YELLOW (YELLOW); LEUKOCYTE ESTERASE ,URINE TRACE (NEGATIVE); NITRITE, URINE NEGATIVE (NEGATIVE); PROTEIN,URINE TRACE mg/dl (NEGATIVE); UGLUCOSE NEGATIVE (NEGATIVE); UROBILINOGEN,URINE 0.2 EU/dL (0.2)
[2022-12-15] MEDS ORDERED: IV NS 0.9% 250 ML IV ONE (17:20)
[2022-12-15] MEDS ORDERED: IOHEXOL-300 100 ML VIAL IV ONE (17:20)
--- NOTE | 2022-12-15 17:35 | NUR ---
PATIENT TAKEN TO CT VIA JEB
[2022-12-15 18:05] LABS: BACTERIA,URINE Few /HPF (None Seen); CALCIUM OXALATE CRYSTALS,UR Few /HPF (None Seen); RBC,URINE 0-2 /HPF (0-2); SQUAMOUS EPITHELIAL CELL,UR Few /HPF (None Seen)
[2022-12-15] MEDS ORDERED: HYDR-4209 PO (18:19)
--- NOTE | 2022-12-15 18:31 | NUR ---
IV removed. Catheter intact and site benign. Pressure and 4x4 applied to site. No bleeding noted.Patient discharged to home in stable condition. Written and verbal after care instructions given. Patient verbalizes understanding of instruction.
[2022-12-15 20:24] VITALS: BP 135/85
== END 2022-12-15 18:31 | disposition home or self-care (01) ==
LOC: ER 15:38
DX: R10.12 Left upper quadrant pain (principal); R16.1 Splenomegaly, not elsewhere classified; I10 Essential (primary) hypertension; E78.5 Hyperlipidemia, unspecified; Z85.3 Personal history of malignant neoplasm of breast; Z79.899 Other long term (current) drug therapy
CPT/HCPCS: 99285; 74177; 96374; 85025; 80048; 83605; 83690; 80076; 84550; 81001; 36415; 85730; J7050; J2270; Q9967